=== PATIENT | female | born 1995 | race Caucasian/White ===

== ENCOUNTER → 2018-02-17 | Outpatient (CLI) | payer BC ==
--- NOTE | 2018-02-17 11:16 | US ---
EXAMINATION TYPE: US abdomen complete DATE OF EXAM: 02/17/2018 COMPARISON: CT abdomen and pelvis February 25, 2003 CLINICAL HISTORY: R10.9 ABD PAIN. Bloating, Epigastric pain, Nausea EXAM MEASUREMENTS: Liver Length: 17.8 cm Gallbladder Wall: 0.2 cm CBD: 0.3 cm CHD: 0.2 cm Spleen: 12.6 cm Right Kidney: 11.7 x 6.0 x 3.9 cm Left Kidney: 11.9 x 4.8 x 4.5 cm Pancreas: wnl Liver: wnl Gallbladder: wnl Evidence for sonographic Fernandez's sign: neg CBD: wnl CHD: wnl Spleen: wnl Right Kidney: wnl Left Kidney: wnl Upper IVC: wnl Abd Aorta: wnl The liver is homogenous. The intrahepatic portion of the IVC and visualized abdominal aorta are with in normal limits. There is no evidence of cholelithiasis. Common bile duct is unremarkable. The vi sualized portions of the pancreas are homogenous. The spleen is unremarkable. Kidneys are symmetric and free of hydronephrosis. No renal lesions are seen. IMPRESSION: No significant finding is seen to account for patient's symptoms.
--- NOTE | 2018-02-17 11:26 | US ---
EXAMINATION TYPE: US pelvic complete DATE OF EXAM: 02/17/2018 COMPARISON: Pelvic ultrasound September 13, 2016. CLINICAL HISTORY: R10.9 ABD PAIN. Cramping, Bloating TECHNIQUE: Transabdominal (TA). Date of LMP: 01/25/2018, G0 EXAM MEASUREMENTS: Uterus: 9.0 x 5.4 x 3.9 cm Endometrial Stripe: 0.5 cm Right Ovary: 3.2 x 2.0 x 2.2 cm Left Ovary: 3.3 x 2.0 x 2.1 cm 1. Uterus: Anteverted wnl 2. Endometrium: wnl 3. Right Ovary: cystic appearing lesion - 2.5 x 1.6 x 1.4 cm 4. Left Ovary: wnl 5. Bilateral Adnexa: wnl 6. Posterior cul-de-sac: wnl Cervix- wnl The exam is noted suboptimal as transvaginal investigation was not performed. In the periphery of rig ht ovary there is poorly defined 2.0 cm oval hypoechoic lesion likely reflecting dominant follicle or small ovarian cyst. IMPRESSION: Suboptimal study, probable 2.0 cm dominant follicle right ovary otherwise unremarkable ex am.
== END | disposition home or self-care (01) ==
LOC: RADUSWWP 07:02
PROVIDERS: ATTEND Family Medicine
DX: R10.9 Unspecified abdominal pain (principal)
CPT/HCPCS: 76700; 76856

== ENCOUNTER → 2019-07-23 | Outpatient (CLI) | payer BC ==
--- NOTE | 2019-07-26 09:30 | USB ---
Reason for exam: clinical finding. Physical Findings: Nurse Summary: resolving mastitis x 2 weeks ago (nurse kp). US Breast RT Right complete breast ultrasound includes all four quadrants, the retroareolar region and axilla. Finding demonstrates a 0.4 x 0.4 x 0.3cm oval, cystic lesion at 3 o'clock, a 0.08 x 1.2 x 0.7cm oval, mixed, hypoechoic lesion at 10 o'clock BB at palpable, not completely benign, possible abscess or other, abscess aspiration or biopsy recommended, a 0.4 x 0.4 x 0.2cm oval, cystic lesion at 10 o'clock and a 0.9 x 0.9 x 0.4cm oval, cystic, complex lesion at 11 o'clock. These results were verbally communicated with the patient and result sheet given to the patient on 07/23/19. ASSESSMENT: Suspicious, BI-RAD 4 RECOMMENDATION: Aspiration of the right breast. Called with mammographic findings and has scheduled an appointment for the patient for 08/23/19 at 1:[address] Hernanedz. Aspiration scheduled for 08/16/19 at 12:20. PRELIMINARY REPORT CALLED AND FAXED TO DR. HERNANDEZ ON 07/26/19.
== END | disposition home or self-care (01) ==
LOC: RADUSWWP 14:55
PROVIDERS: ATTEND Physician Assistant
DX: N61.0 Mastitis without abscess (principal)

== ENCOUNTER → 2019-08-23 | Day surgery (SDC) | payer BC ==
[~2019-08-23] MED LIST: GLUCAGON 1 MG/ML VIAL IM STA
[2019-08-23 11:10] VITALS: BP 122/68; PULSE 76; RESP 16; TEMP 98
--- NOTE | 2019-08-24 14:02 | MR ---
EXAMINATION TYPE: MR Enterography DATE OF EXAM: 08/23/2019 COMPARISON: Abdominal ultrasound February 17, 2018 HISTORY: Crohn's Disease, patient denies history of prior bowel surgery. CONTRAST: Standard multiplanar, multisequence imaging of the abdomen is performed without and with IV contrast, patient is injected with 9 mL intravenous Gadavist gadolinium contrast. Oral Volumen and Water was g iven as per enterography protocol. FINDINGS: Bowel: There is satisfactory distention of the stomach without suspicious concentric wall thickening or mural enhancement. There is suboptimal distention of the duodenal sweep without suspicious eccentr ic wall thickening. There is less than optimal distention of jejunal loops in the left abdomen. Ileal loops in the right abdomen show increased fluid distention. Terminal ileum shows mild wall thickenin g without suspicious eccentric thickening or enhancement. Finding presumed chronic. No suspicious pro ximal dilatation to suggest significant stricture at this level. There is fluid-filled right colon. T here is fecal filled left and transverse colon. No suspicious eccentric wall thickening. Other: Lung bases are clear. Visualized liver, gallbladder, spleen, and pancreas are normal in size. There is splenule in the splenic hilum axial image 40. There is no concerning renal mass or left-marily ed hydronephrosis. There is asymmetric mild to minimal right-sided hydronephrosis without significant hydroureter. There is no abdominal ascites or adenopathy. Visualized osseous structures are intact. IMPRESSION: 1. No active enteritis. Suggestion of some chronic inflammation at level of terminal ileum not causin g significant stenosis or stricture. 2. Mild to minimal right-sided hydronephrosis without hydroureter or obvious cause of obstruction. Co rrelate for possible reflux and/or recent infection.
== END ==
LOC: RADMRIMAIN 10:18
PROVIDERS: ATTEND Internal Medicine Gastroenterology
DX: N13.30 Unspecified hydronephrosis (principal)
CPT/HCPCS: 96372; 72197; 74183; J1610; A9585

== ENCOUNTER → 2019-08-30 | Day surgery (SDC) | payer BC ==
[2019-08-30 08:46] VITALS: BMI 30.1
--- NOTE | 2019-08-30 09:45 | USB ---
ULTRASOUND GUIDED CORE BIOPSY RIGHT BREAST LESION: CLINICAL HISTORY: 10:00 position right breast nodule requested for biopsy FINDINGS: The procedure was explained to the patient. The risks, complications, benefits and alternatives were discussed and any questions were answered. Informed consent was obtained. Patient was placed supine on the ultrasound table and prepped and draped in the usual sterile fashion. Utilizing a 14-gauge needle, 3 passes were made into the requested right breast lesion. Surgical clip was placed post procedure. Patient was stable throughout the procedure. Pathology is pending. All elements of maximal barrier technique were utilized. IMPRESSION: 1. Successful ultrasound guided core biopsy right breast. Pathology Results: Benign RIGHT BREAST, ULTRASOUND GUIDED CORE BIOPSY: Fibroadenoma. Recommendation Follow up ultrasound of the right breast in 6 months. JOSHUA
[2019-08-30 10:21] VITALS: BP 112/71; PULSE 66; RESP 16; TEMP 98.6
== END ==
LOC: RADUSWWP 08:21
PROVIDERS: ATTEND Family Medicine
DX: D24.1 Benign neoplasm of right breast (principal); N63.10 Unspecified lump in the right breast, unspecified quadrant; Z91.040 Latex allergy status
CPT/HCPCS: 88305; 19083; A4648; J2001

== ENCOUNTER → 2019-09-18 | Outpatient (CLI) | payer BC ==
[2019-09-18 09:38] LABS: Basophils % (A) 0 %; Eosinophils # (A) 0.1 k/uL (0-0.7); Eosinophils % (A) 1 %; HCT 39.6 % (34.0-46.0); HGB 12.6 gm/dL (11.4-16.0); Lymphocytes # (A) 1.9 k/uL (1.0-4.8); Lymphocytes % (A) 36 %; MCH 28.9 pg (25.0-35.0); MCHC 31.8 g/dL (31.0-37.0); MCV 90.8 fL (80.0-100.0); Mean Platelet Volume 7.4; Monocytes # (A) 0.3 k/uL (0-1.0); Monocytes % (A) 5 %; Neutrophils # (A) 3.1 k/uL (1.3-7.7); Neutrophils % (A) 57 %; Platelet Count 259 k/uL (150-450); RBC 4.36 m/uL (3.80-5.40); WBC 5.5 k/uL (3.8-10.6)
[2019-09-18 10:31] LABS: Erythrocyte Sedimentation Rate 14 mm/hr (0-20)
[2019-09-18 17:47] LABS: African American GFR (CKD) 120.4 (60.0-200.0); Albumin 4.6 g/dL (3.80-4.90); Albumin/Globulin Ratio 2.19 (1.60-3.17); Anion Gap 8.9 mmol/L (4.00-12.00); BUN/Creat Ratio 13.75 Ratio (12.00-20.00); C Reactive Protein 0.4 mg/dL (0.0-0.8); Calcium 9.3 mg/dL (8.7-10.3); Carbon Dioxide 27.1 mmol/L (21.6-31.8); Globulin 2.1 g/dL (1.6-3.3); Potassium 4.3 mmol/L (3.5-5.5); Total Bilirubin 0.5 mg/dL (0.3-1.2); Total Protein 6.7 g/dL (6.2-8.2)
== END | disposition home or self-care (01) ==
LOC: LABWHC1 08:57
PROVIDERS: ATTEND Nurse Practitioner
DX: K50.90 Crohn's disease, unspecified, without complications (principal)
CPT/HCPCS: 36415; 80053; 85025; 85652; 86140

== ENCOUNTER → 2019-12-30 | Outpatient (CLI) | payer BC ==
[2019-12-30 17:12] LABS: Basophils % (A) 0 %; Eosinophils # (A) 0.1 k/uL (0-0.7); Eosinophils % (A) 1 %; HCT 38.8 % (34.0-46.0); HGB 12.5 gm/dL (11.4-16.0); Lymphocytes # (A) 2.4 k/uL (1.0-4.8); Lymphocytes % (A) 45 %; MCH 29.4 pg (25.0-35.0); MCHC 32.1 g/dL (31.0-37.0); MCV 91.4 fL (80.0-100.0); Mean Platelet Volume 9.5; Monocytes # (A) 0.3 k/uL (0-1.0); Monocytes % (A) 6 %; Neutrophils # (A) 2.3 k/uL (1.3-7.7); Neutrophils % (A) 44 %; Platelet Count 275 k/uL (150-450); RBC 4.25 m/uL (3.80-5.40); RDW 13.3 % (11.5-15.5); WBC 5.2 k/uL (3.8-10.6)
[2019-12-30 23:15] LABS: % Iron Saturation 12.43 (12.00-45.00); ALT 18 U/L (8-44); AST 20 U/L (13-35); Albumin/Globulin Ratio 2.26 (1.60-3.17); Alkaline Phosphatase 70 U/L (41-126); Bilirubin, Conjugated <0.20 mg/dL (0.20-0.40); Globulin 1.9 g/dL (1.6-3.3); Iron 44 ug/dL (50-170); Total Bilirubin 0.4 mg/dL (0.2-1.2); Total Iron Binding Capacity 354 ug/dL (228-460); Total Protein 6.2 g/dL (6.2-8.2)
[2019-12-30 23:36] LABS: Ferritin 11.1 ng/mL (10.0-291.0)
== END | disposition home or self-care (01) ==
LOC: LABWHC1 16:40
PROVIDERS: ATTEND Nurse Practitioner
DX: K50.90 Crohn's disease, unspecified, without complications (principal)
CPT/HCPCS: 36415; 80076; 82728; 83540; 83550; 85025

== ENCOUNTER → 2020-01-28 | Outpatient (CLI) | payer BC ==
[2020-01-28 09:40] LABS: Basophils % (A) 0 %; Eosinophils # (A) 0.1 k/uL (0-0.7); Eosinophils % (A) 1 %; HCT 39.8 % (34.0-46.0); Lymphocytes # (A) 2.1 k/uL (1.0-4.8); Lymphocytes % (A) 39 %; MCH 29.2 pg (25.0-35.0); MCHC 32.7 g/dL (31.0-37.0); MCV 89.2 fL (80.0-100.0); Mean Platelet Volume 8.4; Monocytes # (A) 0.3 k/uL (0-1.0); Monocytes % (A) 5 %; Neutrophils # (A) 2.7 k/uL (1.3-7.7); Neutrophils % (A) 52 %; Platelet Count 292 k/uL (150-450); RBC 4.47 m/uL (3.80-5.40); RDW 12.7 % (11.5-15.5); WBC 5.3 k/uL (3.8-10.6)
[2020-01-28 12:00] LABS: Erythrocyte Sedimentation Rate 18 mm/hr (0-20)
== END | disposition home or self-care (01) ==
LOC: LABWHC1 08:47
PROVIDERS: ATTEND Nurse Practitioner
DX: K62.5 Hemorrhage of anus and rectum (principal)
CPT/HCPCS: 36415; 85025; 85652; 86140

== ENCOUNTER → 2020-07-11 | Outpatient (CLI) | payer BC ==
[2020-07-11 10:50] LABS: Basophils % (A) 1 %; Eosinophils % (A) 1 %; HCT 41.4 % (34.0-46.0); Lymphocytes # (A) 2.2 k/uL (1.0-4.8); Lymphocytes % (A) 36 %; MCH 28.3 pg (25.0-35.0); MCHC 31.3 g/dL (31.0-37.0); MCV 90.4 fL (80.0-100.0); Mean Platelet Volume 8.9; Monocytes # (A) 0.3 k/uL (0-1.0); Monocytes % (A) 5 %; Neutrophils # (A) 3.4 k/uL (1.3-7.7); Neutrophils % (A) 56 %; Platelet Count 245 k/uL (150-450); RBC 4.58 m/uL (3.80-5.40); RDW 13.5 % (11.5-15.5); WBC 6.1 k/uL (3.8-10.6)
[2020-07-11 11:02] LABS: ALT 16 U/L (4-34); AST 25 U/L (14-36); African American GFR (CKD) >90 (>60 ml/min/1.73 sqM); Albumin 4.6 g/dL (3.5-5.0); Alkaline Phosphatase 71 U/L (38-126); Anion Gap 8 mmol/L; Blood Urea Nitrogen 9 mg/dL (7-17); C Reactive Protein 8.4 mg/L (<10.0); Carbon Dioxide 27 mmol/L (22-30); Chloride 103 mmol/L (98-107); Glucose 94 mg/dL (74-99); Non-African American GFR(CKD) >90 (>60 ml/min/1.73 sqM); Potassium 4.6 mmol/L (3.5-5.1); Sodium 138 mmol/L (137-145); Total Bilirubin 0.4 mg/dL (0.2-1.3); Total Protein 7.3 g/dL (6.3-8.2)
[2020-07-11 13:34] LABS: Erythrocyte Sedimentation Rate 14 mm/hr (0-20)
== END ==
LOC: LABWHC1 14:05
PROVIDERS: ATTEND Nurse Practitioner
DX: Z53.9 Procedure and treatment not carried out, unspecified reason (principal)
CPT/HCPCS: 36415; 80053; 85025; 85652; 86140

== ENCOUNTER → 2020-07-12 | Outpatient (CLI) | payer BC ==
[2020-07-11 10:50] LABS: Basophils % (A) 1 %; Eosinophils % (A) 1 %; HCT 41.4 % (34.0-46.0); Lymphocytes # (A) 2.2 k/uL (1.0-4.8); Lymphocytes % (A) 36 %; MCH 28.3 pg (25.0-35.0); MCHC 31.3 g/dL (31.0-37.0); MCV 90.4 fL (80.0-100.0); Mean Platelet Volume 8.9; Monocytes # (A) 0.3 k/uL (0-1.0); Monocytes % (A) 5 %; Neutrophils # (A) 3.4 k/uL (1.3-7.7); Neutrophils % (A) 56 %; Platelet Count 245 k/uL (150-450); RBC 4.58 m/uL (3.80-5.40); RDW 13.5 % (11.5-15.5); WBC 6.1 k/uL (3.8-10.6)
[2020-07-11 11:02] LABS: ALT 16 U/L (4-34); AST 25 U/L (14-36); African American GFR (CKD) >90 (>60 ml/min/1.73 sqM); Albumin 4.6 g/dL (3.5-5.0); Alkaline Phosphatase 71 U/L (38-126); Anion Gap 8 mmol/L; Blood Urea Nitrogen 9 mg/dL (7-17); C Reactive Protein 8.4 mg/L (<10.0); Carbon Dioxide 27 mmol/L (22-30); Chloride 103 mmol/L (98-107); Glucose 94 mg/dL (74-99); Non-African American GFR(CKD) >90 (>60 ml/min/1.73 sqM); Potassium 4.6 mmol/L (3.5-5.1); Sodium 138 mmol/L (137-145); Total Bilirubin 0.4 mg/dL (0.2-1.3); Total Protein 7.3 g/dL (6.3-8.2)
[2020-07-11 13:34] LABS: Erythrocyte Sedimentation Rate 14 mm/hr (0-20)
--- NOTE | 2020-07-12 10:19 | CT ---
EXAMINATION TYPE: CT abdomen pelvis w con DATE OF EXAM: 07/12/2020 COMPARISON: NONE HISTORY: 24-year-old female Pelvic Pain TECHNIQUE: Contiguous axial scanning of the abdomen and pelvis following administration of 100 ml Iso checo 300 IV contrast. Delayed images through the kidneys and coronal/sagittal reconstructions perform ed. CT DLP: 1198.8 mGycm Automated exposure control for dose reduction was used. FINDINGS: LUNG BASES: No significant abnormality is appreciated. LIVER/GB: No significant abnormality is appreciated. PANCREAS: No significant abnormality is seen. SPLEEN: No significant abnormality is seen. ADRENALS: No significant abnormality is seen. KIDNEYS: No significant abnormality is seen. LYMPH NODES: Numerous scattered nonenlarged mesenteric lymph nodes. BOWEL: No dilated small bowel, free fluid, or free air. There is moderate stool within the right hem icolon. No pericolonic inflammatory change. Segments of a normal appendix are visualized. PELVIS: Uterus is anteverted. Prominent distention of the urinary bladder is 12.4 cm. Left ovary is v isualized with a peripherally enhancing crenulated hyperdense lesion within measuring 1.8 cm. Right o vary not clearly delineated from adjacent bowel. There is moderate free fluid in the bilateral adnexa and trace within the cul-de-sac. BONES: No osseous destructive process. IMPRESSION: 1. SEGMENTS OF A NORMAL APPENDIX ARE VISUALIZED. 2. MODERATE FREE FLUID IN THE BILATERAL ADNEXA AND TRACE FLUID WITHIN THE CUL-DE-SAC. 3. GIVEN A 1.8 CM PERIPHERALLY ENHANCING, CRENULATED LESION WITHIN THE LEFT OVARY, CONSIDER A RUPTURE D/HEMORRHAGIC CYST A POSSIBLE ETIOLOGY. ULTRASOUND FOLLOW-UP CAN BE CONSIDERED. 4. PROMINENT DISTENTION OF THE URINARY BLADDER UP TO 12.4 CM. CORRELATE TO ENSURE THAT THIS REPRESENT S VOLUNTARY RETENTION.
== END | disposition home or self-care (01) ==
LOC: RADCTMAIN 07-11 09:37
PROVIDERS: ATTEND Nurse Practitioner
DX: N83.8 Other noninflammatory disorders of ovary, fallopian tube and broad ligament (principal); N32.89 Other specified disorders of bladder; K62.5 Hemorrhage of anus and rectum
CPT/HCPCS: 80053; 85652; 85025; 86140; 74177; 36415; Q9967 ×2; 83993; 87045; 87046; 87324

== ENCOUNTER 2024-04-22 20:32 | Emergency (ER) | payer BC, OTHER ==
[2024-04-22 20:38] VITALS: TEMP 98.4
--- NOTE | 2024-04-22 21:38 | ED ---
General Adult HPI - General Chief complaint: Extremity Problem,Nontraumatic Stated complaint: Tingling in legs Time Seen by Provider: 04/22/24 21:04 Source: patient Mode of arrival: ambulatory Limitations: no limitations - History of Present Illness Initial comments: Dictation was produced using [employer] dictation software. please excuse any grammatical, word or spelling errors. Chief Complaint: 28-year-old female with past medical history of iron deficiency Crohn's disease presents to the emergency department with lower extremity swelling and left knee pain History of Present Illness: Patient is a 28-year-old female presents to the emergency department for bilateral lower extremity swelling. Patient states she has had swelling for approximately 2 weeks. Patient states she had a similar episode years ago though not quite this bad. Patient denies any shortness of breath or fevers. Denies any history of lymphedema. Denies any significant family history. Patient does not have shortness of breath. She tried to elevate her legs which she did not appear to improve anything. Denies any numbness to her feet. Denies any calf pain. She did have some recent travel to [place]. Patient also complaining of some mild left knee pain. The ROS documented in this emergency department record has been reviewed and confirmed by me. Those systems with pertinent positive or negative responses have been documented in the HPI. All other systems are other negative and/or noncontributory. - Related Data Home Medications Medication Instructions Recorded Confirmed Ferrous Sulfate [Iron] 325 mg PO DAILY 08/04/19 08/30/19 Ibuprofen 200 mg PO DAILY PRN 08/30/19 08/30/19 Mesalamine [Pentasa] 250 mg PO QID 08/30/19 08/30/19 Allergies Allergy/AdvReac Type Severity Reaction Status Date / Time latex Allergy Itching Verified 04/22/24 20:38 Review of Systems ROS Statement: Those systems with pertinent positive or pertinent negative responses have been documented in the HPI. ROS Other: All systems not noted in ROS Statement are negative. Past Medical History Additional Past Medical History / Comment(s): iron deficiency anemia, crohn's History of Any Multi-Drug Resistant Organisms: None Reported Past Surgical History: Tonsillectomy Additional Past Surgical History / Comment(s): eyelid surgery Past Anesthesia/Blood Transfusion Reactions: No Reported Reaction Past Psychological History: Anxiety, Depression Smoking Status: Never smoker Past Alcohol Use History: Occasional Past Drug Use History: None Reported General Exam - General Exam Comments Initial Comments: PHYSICAL EXAM: General Impression: Alert and oriented x3, not in acute distress HEENT: Normocephalic atraumatic, extra-ocular movements intact, pupils equal and reactive to light bilaterally, mucous membranes moist. Cardiovascular: Heart regular rate and rhythm Chest: Able to complete full sentences, no retractions, no tachypnea Abdomen: abdomen soft, non-tender, non-distended, no organomegaly Musculoskeletal: Pulses present and equal in all extremities, 1+ pitting edema bilaterally Motor: no focal deficits noted Neurological: CN II-XII grossly intact, no focal motor or sensory deficits noted Skin: Intact with no visualized rashes Psych: Normal affect and mood Limitations: no limitations Course Vital Signs 04/22/24 20:36 Temperature 98.4 F Pulse Rate 77 Respiratory 18 Rate Blood Pressure 171/86 O2 Sat by Pulse 100 Oximetry Medical Decision Making - Medical Decision Making Was pt. sent in by a medical professional or institution (, PA, TOWEL S[employer]TER, urgent care, hospital, or detention...) When possible be specific @ -No Did you speak to anyone other than the patient for history (EMS, parent, family, police, friend...)? What history was obtained from this source @ -No Did you review nursing and triage notes (agree or disagree)? Why? @ -I reviewed and agree with nursing and triage notes Were old charts reviewed (outside hosp., previous admission, EMS record, old EKG, old radiological studies, urgent care reports/EKG's, detention records)? Report findings @ -No old charts were reviewed Differential Diagnosis (chest pain, altered mental status, abdominal pain women, abdominal pain men, vaginal bleeding, musculoskeletal, weakness, fever, dyspnea, syncope, headache, dizziness, GI bleed, back pain, seizure, CVA, palpatations, mental health)? @ -heart Failure, DVT, cellulitis EKG interpreted by me (3pts min.). @ -None done X-rays interpreted by me (1pt min.). @ -Knee x-ray is nonacute CT interpreted by me (1pt min.). @ -None done U/S interpreted by me (1pt. min.). @ -Lower extremity ultrasound shows no DVT What testing was considered but not performed or refused? (CT, X-rays, U/S, labs)? Why? @ -None What meds were considered but not given or refused? Why? @ -None Did you discuss the management of the patient with other professionals (professionals i.e. , PA, TOWEL S[employer]TER, lab, RT, psych nurse, child welfare social worker, cdl company driver, t eacher, stream control officer, ed case manager)? Give summary @ -No Was smoking cessation discussed for >3mins.? @ -No Was critical care preformed (if so, how long)? @ -No Were there social determinants of health that impacted care today? How? (Homelessness, low income, unemployed, alcoholism, drug addiction, transportation, low edu. Level, literacy, decrease access to med. care, skilled nursing, rehab)? @ -No Was there de-escalation of care discussed even if they declined (Discuss DNR or withdrawal of care, Hospice)? DNR status @ -No What co-morbidities impacted this encounter? (DM, HTN, Smoking, COPD, CAD, Cancer, CVA, ARF, Chemo, Hep., AIDS, mental health diagnosis, sleep apnea, morbid obesity)? @ -None Was patient admitted / discharged? Hospital course, mention meds given and route, prescriptions, significant lab abnormalities, going to OR and other pertinent info. @ -20-year-old female presents to the emergency department for lower extremity pitting edema. Vital signs stable. Patient well-appearing without any acute distress. Laboratory evaluation obtained. Labs are unremarkable. Urinalysis negative. Ultrasound and knee x-ray are negative. Patient advised follow-up with primary care doctor for pitting edema. No obvious source at this time. Patient agreeable to discharge Undiagnosed new problem with uncertain prognosis? @ -No Drug Therapy requiring intensive monitoring for toxicity (Heparin, Nitro, Insulin, Cardizem)? @ -No Were any procedures done? @ -No Diagnosis/symptom? Acute, or Chronic, or Acute on Chronic? Uncomplicated (without systemic symptoms) or Complicated (systemic symptoms)? @ -Leg edema Side effects of treatment? @ -No Exacerbation, Progression, or Severe Exacerbation? @ -No Poses a threat to life or bodily function? How? (Chest pain, [place], [place], pneumonia, PE, COPD, DKA, ARF, appy, cholecystitis, CVA, Diverticulitis, Homicidal, Suicidal, threat to staff... and all critical care pts) @ -No - Lab Data Result diagrams: 04/22/24 22:09 04/22/24 22:09 Lab Results 04/22/24 04/22/24 04/22/24 Range/Units 22:09 22:09 22:53 WBC 8.1 (3.8-10.6) k/uL RBC 4.47 (3.80-5.40) m/uL Hgb 12.3 (11.4-16.0) gm/dL Hct 39.5 (34.0-46.0) % MCV 88.5 (80.0-100.0) fL MCH 27.4 (25.0-35.0) pg MCHC 31.0 (31.0-37.0) g/dL RDW 14.8 (11.5-15.5) % Plt Count 303 (150-450) k/uL MPV 8.8 Neutrophils % 54 % Lymphocytes % 38 % Monocytes % 5 % Eosinophils % 1 % Basophils % 1 % Neutrophils # 4.4 (1.3-7.7) k/uL Lymphocytes # 3.1 (1.0-4.8) k/uL Monocytes # 0.4 (0-1.0) k/uL Eosinophils # 0.1 (0-0.7) k/uL Basophils # 0.1 (0-0.2) k/uL Sodium 138 (137-145) mmol/L Potassium 4.0 (3.5-5.1) mmol/L Chloride 105 (98-107) mmol/L Carbon Dioxide 24 (22-30) mmol/L Anion Gap 9 mmol/L BUN 12 (7-17) mg/dL Creatinine 0.74 (0.52-1.04) mg/dL Est GFR (CKD-EPI)AfAm >90 (>60 ml/min/1.73 sqM) Est GFR (CKD-EPI)NonAf >90 (>60 ml/min/1.73 sqM) Glucose 80 (74-99) mg/dL Calcium 9.1 (8.4-10.2) mg/dL NT-Pro-B Natriuret Pep 28 pg/mL Urine Color Yellow Urine Appearance Clear (Clear) Urine pH 6.0 (5.0-8.0) Ur Specific Barker 1.027 (1.001-1.035) Urine Protein Negative (Negative) Urine Glucose (UA) Negative (Negative) Urine Ketones Negative (Negative) Urine Blood Negative (Negative) Urine Nitrite Negative (Negative) Urine Bilirubin Negative (Negative) Urine Urobilinogen <2.0 (<2.0) mg/dL Ur Leukocyte Esterase Negative (Negative) Disposition Clinical Impression: Leg edema Disposition: HOME SELF-CARE Condition: Good Instructions (If sedation given, give patient instructions): Leg Edema (ED) Is patient prescribed a controlled substance at d/c from ED?: No Referrals: Chai Hernandez MD [Primary Care Provider] - 1-2 days Time of Disposition: 01:38
--- NOTE | 2024-04-22 22:00 | XR ---
EXAMINATION TYPE: XR knee 4V LT DATE OF EXAM: 04/22/2024 9:56 PM CLINICAL INDICATION:Female, 28 years old with history of pain; [facility] COMPARISON: None. TECHNIQUE: The Left knee(s) was examined in Frontal, lateral, horizon, and oblique projections. FINDINGS: No evidence of any acute osseous pathology, soft tissue swelling, or joint effusion is no thai. IMPRESSION: No acute osseous pathology.
[2024-04-22 22:22] LABS: Basophils # (A) 0.1 k/uL (0-0.2); Basophils % (A) 1 %; Eosinophils # (A) 0.1 k/uL (0-0.7); Eosinophils % (A) 1 %; HCT 39.5 % (34.0-46.0); HGB 12.3 gm/dL (11.4-16.0); Lymphocytes # (A) 3.1 k/uL (1.0-4.8); Lymphocytes % (A) 38 %; MCH 27.4 pg (25.0-35.0); MCV 88.5 fL (80.0-100.0); Mean Platelet Volume 8.8; Monocytes # (A) 0.4 k/uL (0-1.0); Monocytes % (A) 5 %; Neutrophils # (A) 4.4 k/uL (1.3-7.7); Neutrophils % (A) 54 %; Platelet Count 303 k/uL (150-450); RBC 4.47 m/uL (3.80-5.40); RDW 14.8 % (11.5-15.5); WBC 8.1 k/uL (3.8-10.6)
[2024-04-22 22:23] LABS: African American GFR (CKD) >90 (>60 ml/min/1.73 sqM); Anion Gap 9 mmol/L; Blood Urea Nitrogen 12 mg/dL (7-17); Calcium 9.1 mg/dL (8.4-10.2); Carbon Dioxide 24 mmol/L (22-30); Chloride 105 mmol/L (98-107); Glucose 80 mg/dL (74-99); Non-African American GFR(CKD) >90 (>60 ml/min/1.73 sqM); Sodium 138 mmol/L (137-145)
[2024-04-22 22:32] LABS: NT-Pro-B-Type Natriuretic Pept 28 pg/mL
[2024-04-22 23:43] LABS: Appearance,Urine Clear (Clear); Bilirubin,Urine Negative (Negative); Blood,Urine Negative (Negative); Color,Urine Yellow; Glucose,Urine (UA) Negative (Negative); Ketones,Urine Negative (Negative); Leukocyte Esterase,Urine Negative (Negative); Nitrite,Urine Negative (Negative); Protein,Urine Negative (Negative); Specific Gravity,Urine 1.027 (1.001-1.035); Urobilinogen,Urine <2.0 mg/dL (<2.0)
--- NOTE | 2024-04-23 01:28 | US ---
EXAM: US Duplex Bilateral Lower Extremities Veins CLINICAL HISTORY: US Reason: pain TECHNIQUE: Real-time duplex ultrasound scan of the bilateral lower extremity veins integrating B-mode two-dimensional vascular structure, Doppler spectral analysis, color flow Doppler imaging and compression. COMPARISON: No relevant prior studies available. FINDINGS: Right deep veins: Unremarkable. No DVT in the right common femoral, femoral, proximal deep femoral or popliteal veins. The veins demonstrate normal color flow, are normally compressible, with normal phasic flow and/or augmentation response. Right superficial veins: Unremarkable. No thrombus in the visualized right great saphenous vein. Left deep veins: Unremarkable. No DVT in the left common femoral, femoral, proximal deep femoral or popliteal veins. The veins demonstrate normal color flow, are normally compressible, with normal phasic flow and/or augmentation response. Left superficial veins: Unremarkable. No thrombus in the visualized left great saphenous vein. Soft tissues: No acute findings. No popliteal cyst. IMPRESSION: Negative bilateral lower extremity duplex venous ultrasound. No evidence of DVT.
[2024-04-23 01:47] VITALS: BP 123/83; PULSE 87; RESP 16
== END 2024-04-23 01:47 | disposition home or self-care (01) ==
LOC: EC 20:32
DX: R60.0 Localized edema (principal); Z91.040 Latex allergy status
CPT/HCPCS: 36415; 80048; 81003; 83880; 85025; 93970; 99284